=== PATIENT | male | born 2000 | race Asian ===

== ENCOUNTER 2019-06-10 12:50 | Emergency (ER) | payer SELFPAY ==
[~2019-06-10] VITALS: Ht 175.3 cm; Wt 77.1 kg
[2019-06-10 12:57] VITALS: BP 112/71
[2019-06-10] MEDS ORDERED: Cephalexin 500mg cap ORAL ONE (13:15)
[2019-06-10] MEDS ORDERED: Dexamethasone 4mg/ml vial IVP ONE (13:15)
--- NOTE | 2019-06-10 13:23 | Emergency Room Report ---
History of Present Illness General Chief Complaint: Sore Throat Source: Patient Present Illness HPI 19-year-old male no significant past medical history here complaining of 2 days of pruritic rash and swelling around mouth, bilateral maxilla, and forehead. Does not recall coming contact with any allergens. Complains of minimal pain at this time. Denies fever and chills, anaphylaxis, difficulty breathing. Reports that other than smoking tobacco and marijuana on daily basis he does not use any other drugs and has not consumed any food that he might have shown allergic reaction to. Reports that cannot open mouth more than several months due to swelling and pain. Complains of lymphadenopathy. Speaks in full sentences and no drooling noted. No signs of anaphylaxis noted. Denies chest pain, shortness of breath, palpitation, headache and dizziness at this time. Denies recent travel. Obvious cellulitis to face noted. Allergies: Uncoded Allergies: NUTS (Allergy, Unknown, 06/10/19) Patient History Past Medical History: see triage record Past Surgical History: unable to obtain Pertinent Family History: none Social History: Reports: smoking Immunizations: UTD Reviewed Nursing Documentation: PMH: Agreed; PSxH: Agreed Nursing Documentation-PMH Past Medical History: No Stated History Review of Systems All Other Systems: negative except mentioned in HPI Physical Exam Vital Signs Date Time Temp Pulse Resp B/P (MAP) Pulse Ox O2 Delivery O2 Flow Rate FiO2 06/10/19 12:57 97.9 81 16 112/71 (85) 98 Room Air Sp02 EP Interpretation: reviewed, normal General Appearance: no apparent distress, alert, GCS 15, non-toxic Head: normocephalic, atraumatic Eyes: bilateral eye normal inspection, bilateral eye PERRL ENT: hearing grossly normal, normal pharynx, no angioedema, normal voice, TMs + canals normal, uvula midline Neck: full range of motion, supple, thyroid normal, no meningismus, supple/symm /no masses, other - Anterior cervical lymphadenopathy Respiratory: chest non-tender, lungs clear, normal breath sounds, no rhonchi, no respiratory distress, no retraction, no wheezing, speaking full sentences Cardiovascular #1: regular rate, rhythm, no edema, no murmur, normal capillary refill Cardiovascular #2: 2+ carotid (R), 2+ carotid (L) Gastrointestinal: normal bowel sounds, non tender, soft, non-distended, no guarding, no rebound Rectal: deferred Genitourinary: no CVA tenderness Musculoskeletal: back normal, swelling - Maxilla, forehead, perioral cellulitis Neurologic: alert, motor strength/tone normal, oriented x3, sensory intact, responsive, speech normal Psychiatric: judgement/insight normal, memory normal, mood/affect normal, no suicidal/homicidal ideation Skin: other - Perioral cellulitis]Secondary to allergic reaction Lymphatic: adenopathy - Anterior cervical lymphadenopathy Medical Decision Making PA Attestation All my diagnosis and treatment plans were reviewed ad discussed with my supervising physician Dr. Chaidez Diagnostic Impression: Primary Impression: Facial cellulitis Additional Impression: Allergic reaction ER Course 19-year-old male no significant past medical history here complaining of 2 days of pruritic rash and swelling around mouth, bilateral maxilla, and forehead. Does not recall coming contact with any allergens. Complains of minimal pain at this time. Denies fever and chills, anaphylaxis, difficulty breathing. Reports that other than smoking tobacco and marijuana on daily basis he does not use any other drugs and has not consumed any food that he might have shown allergic reaction to. Reports that cannot open mouth more than several months due to swelling and pain. Complains of lymphadenopathy. Speaks in full sentences and no drooling noted. No signs of anaphylaxis noted. Denies chest pain, shortness of breath, palpitation, headache and dizziness at this time. Denies recent travel. Obvious cellulitis to face noted. Ddx considered but are not limited to : Cellulitis, allergic reaction, anaphylaxis , superficial infection, abscess Vital signs: are WNL, pt. is afebrile H&PE are most consistent with:cellulitis facial, allergic reaction without anaphylaxis ORDERS:Keflex, Prednisone, triamcinolone ED INTERVENTIONS: Dexamethasone, Keflex DISCHARGE: At this time pt. is stable for d/c to home. Will provide printed patient care instructions, and any necessary prescriptions. Care plan and follow up instructions have been discussed with the patient prior to discharge. Take medication as directed, if anaphylaxis emergency room return to the emergency room. Follow-up with your primary care physician, referral to microfilm duplicating unit supervisor may be needed. Last Vital Signs Date Time Temp Pulse Resp B/P (MAP) Pulse Ox O2 Delivery O2 Flow Rate FiO2 06/10/19 12:57 97.9 81 16 112/71 (85) 98 Room Air Disposition: HOME, SELF-CARE Condition: Stable Scripts Triamcinolone Acetonide (Triamcinolone Acetonide 0.5% Cream*) 15 Gm Cream..g. 2 GM TP BID, #15 GM Prov: Omid Villa 06/10/19 Prednisone* (PREDNISONE*) 20 Mg Tablet 40 MG ORAL DAILY for 5 Days, #10 TAB Prov: Omid Villa 06/10/19 Cephalexin* (KEFLEX*) 500 Mg Capsule 500 MG ORAL EVERY 6 HOURS for 7 Days, #28 CAP Prov: Omid Villa 06/10/19 Patient Instructions: Cellulitis, [id number] Additional Instructions: Take medication as directed, follow-up with your primary care provider, if worsening symptoms return to the emergency room. If anaphylaxis, difficulty breathing or swallowing return to the emergency room. Dermatology referral may be needed to be requested by your primary care physician Omid Villa Jun 10, 2019 13:23
[2019-06-10] MEDS ORDERED: PREDNISONE20 MG ORAL (13:25)
[2019-06-10] MEDS ORDERED: TRIAMCINOLONE A15 G1 TP (13:25)
[2019-06-10] MEDS ORDERED: CEPHALEXIN500 MG ORAL (13:25)
[2019-06-10 13:33] VITALS: BP 110/74
--- NOTE | 2019-06-10 13:33 | NUR ---
ER DISCHARGE NOTE: Pt is medically cleared to be discharged per ERMD. Pt is AOx4, VSS, on RA; no signs of acute distress. pt was given dc and prescription instructions, pt was able to verbalize understanding, pt id band removed. pt is able to ambulate with steady gait. pt took all belongings.
== END 2019-06-10 14:15 | disposition home or self-care (01) ==
LOC: EMR 14:06
DX: L03.211 Cellulitis of face (principal); T78.40XA Allergy, unspecified, initial encounter; X58.XXXA Exposure to other specified factors, initial encounter; F17.200 Nicotine dependence, unspecified, uncomplicated; Z91.018 Allergy to other foods
CPT/HCPCS: 96374; 99284; J1100